=== PATIENT | male | born 1975 | race Caucasian/White ===

== ENCOUNTER 2017-01-29 13:40 | Emergency (ER) | payer MEDICAID, OTHER ==
[~2017-01-29] VITALS: Ht 188 cm; Wt 72.0 kg
[~2017-01-29 13:40] MED LIST: BUPR-75 PO; CLON2TAB3 PO; LEVE250T66 PO; VENL25TA PO
[2017-01-29 13:42] VITALS: Ht 188 cm; Wt 72.0 kg
[2017-01-29 14:12] LABS: URINE BLOOD (Dip) POC Negative (NEGATIVE)
[2017-01-29] MEDS ORDERED: LORAZEPAM 2 MG INJ IM ONE (14:30)
[2017-01-29] MEDS ORDERED: DIPHENHYDRAMINE 50 MG INJ IM ONE (14:30)
[2017-01-29] MEDS ORDERED: OLANZAPINE 10 MG VIAL IM ONE (14:30)
[2017-01-29 14:58] LABS: BARBITURATES Negative (NEGATIVE); BENZODIAZEPINES Negative (NEGATIVE); CANNABINOIDS Negative (NEGATIVE); COCAINE Negative (NEGATIVE); OPIATES Negative (NEGATIVE)
[2017-01-29 15:41] LABS: BASOPHILS % 0.3 % (0.0-2.0); EOSINOPHILS # 0.1 10^3/ul (0.0-0.5); EOSINOPHILS % 0.8 % (0.0-7.0); HEMATOCRIT 29.3 % (42.0-52.0); HEMOGLOBIN 8.9 g/dl (14.0-18.0); LYMPHOCYTES # 1.7 10^3/ul (0.8-2.9); LYMPHOCYTES % 27.9 % (15.0-51.0); MEAN CORPUSCULAR HEMOGLOBIN 21.3 pg (29.0-33.0); MEAN CORPUSCULAR HGB CONC 30.4 g/dl (32.0-37.0); MEAN CORPUSCULAR VOLUME 70.3 fl (82.0-101.0); MEAN PLATELET VOLUME 8.8 fl (7.4-10.4); MONOCYTE # 0.5 10^3/ul (0.3-0.9); MONOCYTES % 7.7 % (0.0-11.0); NEUTROPHILS % 63.1 % (39.0-77.0); PLATELET COUNT 375 10^3/UL (140-415); RED BLOOD COUNT 4.17 10^6/ul (4.70-6.10); RED CELL DISTRIBUTION WIDTH 17.2 % (11.5-14.5); WHITE BLOOD COUNT 6.2 10^3/ul (4.8-10.8)
[2017-01-29 16:04] LABS: ADD UMIC NO; UR ASCORBIC ACID 40 mg/dL (NEGATIVE); UR BILIRUBIN (Dip) NEGATIVE (NEGATIVE); UR BLOOD (Dip) NEGATIVE (NEGATIVE); UR CLARITY SLIGHTLY CLOUDY (CLEAR); UR COLOR YELLOW (YELLOW); UR GLUCOSE (Dip) NEGATIVE (NEGATIVE); UR KETONES (Dip) NEGATIVE (NEGATIVE); UR LEUKOCYTE ESTERASE (Dip) NEGATIVE Leu/ul (NEGATIVE); UR MUCUS FEW /HPF (NONE SEEN); UR NITRITE (Dip) NEGATIVE (NEGATIVE); UR RBC 1 /HPF (0-5); UR SPECIFIC GRAVITY (Dip) 1.026 (1.003-1.030); UR TOTAL PROTEIN (Dip) NEGATIVE (NEGATIVE); UR UROBILINOGEN (Dip) NEGATIVE (NEGATIVE)
[2017-01-29 16:08] LABS: ALANINE AMINOTRANSFERASE 56 IU/L (13-69); ALBUMIN 4.3 g/dl (3.3-4.9); ALBUMIN/GLOBULIN RATIO 1.19; ALKALINE PHOSPHATASE 89 IU/L (42-121); ANION GAP 15 (8-16); ASPARTATE AMINO TRANSFERASE 42 IU/L (15-46); BILIRUBIN,INDIRECT 0.1 mg/dl (0-1.1); BILIRUBIN,TOTAL 0.1 mg/dl (0.2-1.3); BLOOD UREA NITROGEN 13 mg/dl (7-20); CALCIUM 9.2 mg/dl (8.4-10.2); CARBON DIOXIDE 27 mmol/L (21-31); CHLORIDE 100 mmol/L (97-110); CREATININE 0.69 mg/dl (0.61-1.24); GLUCOSE 82 mg/dl (70-220); POTASSIUM 3.6 mmol/L (3.5-5.1); SODIUM 138 mmol/L (135-144); TOTAL PROTEIN 7.9 g/dl (6.1-8.1)
[2017-01-29 16:11] LABS: ACETAMINOPHEN < 10.0 ug/ml (10.0-30.0); ETHANOL < 10.0 mg/dl; SALICYLATE < 1.0 mg/dl (5.0-30.0)
--- NOTE | 2017-01-29 17:20 | PSY ---
Date/Time of Note Date/Time of Note DATE: 01/29/17 TIME: 17:16 Psychiatric Subjective Eval Consent Pt consented to telemedicine: Yes Subjective Evaluation Patient location: emergency Chief Complaint: pt bib self with c/o being suicidal History of present illness 41 yo male with hx schizophrenia, amph use disorder and hx self mutilation ( biting skin off her hands) , discharged from inpt psych 2 days ago, used meth, comes to ED c/o SI. In ED bit skin off her hand, had to be restrained. Pt states he is depressed, sucidal w/o a plan, wants to kill himself. No HI, no VH. Paranoid, irritable. Hx seizure do , on keppra. Past psychiatric history multiple inpt Hospitalization: Suicidal Attempt(s) Family History denies Medical history Problems Medical Problems: (1) Depression with suicidal ideation Status: Acute Allergies: Coded Allergies: quetiapine fumarate (Verified Allergy, Mild, DIZZY, 07/30/12) divalproex sodium (Verified Allergy, ABD PAIN, 07/30/12) Substance Abuse Substance abuse history: Yes Prior substance abuse treatmen: Yes Social History Marital status: single Level of education: spec ed DPA/Conservatorship: No Occupation/Detention: homeless, on ssi Psychiatric Objective Eval Mental Status Examination: Appearance: Disheveled Eye Contact: Good Psychomotor Activity: Normal Behavior: Guarded Speech: Monotone AFFECT: Flat Mood: Irritable Though Process: Circumstantial Thought Content: Hallucinations Suicidal: Yes Homicidal: No Orientation: x3 Cognition: Alert Insight: Impared Judgement: Impared Laboratory Results Laboratory Tests Test 01/29/17 14:15 01/29/17 14:17 01/29/17 15:20 Urine Color YELLOW Urine Clarity SLIGHTLY CLOUDY Urine pH 5.0 Urine Specific [place] 1.026 Urine Ketones NEGATIVEmg/dL Urine Nitrite NEGATIVEmg/dL Urine Bilirubin NEGATIVEmg/dL Urine Urobilinogen NEGATIVEmg/dL Urine Leukocyte Esterase NEGATIVELeu/ul Urine Microscopic RBC 1/HPF Urine Microscopic WBC 1/HPF Urine Mucus FEW/HPF Urine Hemoglobin NEGATIVEmg/dL Urine Glucose NEGATIVEmg/dL Urine Total Protein NEGATIVEmg/dl Urine Opiates Screen Negative Urine Barbiturates Negative Urine Amphetamines Screen POSITIVE Urine Benzodiazepines Screen Negative Urine Cocaine Screen Negative Urine Cannabinoids Negative Bedside Urine pH (LAB) 5.5 Bedside Urine Protein (LAB) Trace Bedside Urine Glucose (UA) Negative Bedside Urine Ketones (LAB) Negative Bedside Urine Blood Negative Bedside Urine Nitrite (LAB) Negative Bedside Urine Leukocyte Esterase (L Negative White Blood Count 6.210^3/ul Red Blood Count 4.1710^6/ul Hemoglobin 8.9g/dl Hematocrit 29.3% Mean Corpuscular Volume 70.3fl Mean Corpuscular Hemoglobin 21.3pg Mean Corpuscular Hemoglobin Concent 30.4g/dl Red Cell Distribution Width 17.2% Platelet Count 78709^3/UL Mean Platelet Volume 8.8fl Neutrophils % 63.1% Lymphocytes % 27.9% Monocytes % 7.7% Eosinophils % 0.8% Basophils % 0.3% Nucleated Red Blood Cells % 0.0/100WBC Neutrophils # (Manual) 3.910^3/ul Lymphocytes # 1.710^3/ul Monocytes # 0.510^3/ul Eosinophils # 0.110^3/ul Basophils # 0.010^3/ul Nucleated Red Blood Cells # 0.010^3/ul Sodium Level 138mmol/L Potassium Level 3.6mmol/L Chloride Level 100mmol/L Carbon Dioxide Level 27mmol/L Anion Gap 15 Blood Urea Nitrogen 13mg/dl Creatinine 0.69mg/dl Glucose Level 82mg/dl Calcium Level 9.2mg/dl Total Bilirubin 0.1mg/dl Direct Bilirubin 0.00mg/dl Indirect Bilirubin 0.1mg/dl Aspartate Amino Transf (AST/SGOT) 42IU/L Alanine Aminotransferase (ALT/SGPT) 56IU/L Alkaline Phosphatase 89IU/L Total Protein 7.9g/dl Albumin 4.3g/dl Globulin 3.60g/dl Albumin/Globulin Ratio 1.19 Salicylates Level < 1.0mg/dl Acetaminophen Level < 10.0ug/ml Ethyl Alcohol Level < 10.0mg/dl Assessment and Plan Assessment/Diagnosis [place] I: SCHIZOAFFECTIVE D/O [place] II: DEFERED [place] III: SEIZURE D/O [place] IV: SEVERE [place] V: GAF 15 Recommendation/Plan Medication Management ZYPREXA 10 MG PO BID; KLONOPIN 1 MG PO BID Follow-up/Disposition 5150 FOR DTS; 1:1 SITTER; TRANSFER TO IN PSYCH. 5150 Recommendation: Place ZAYRA Merritt MD Jan 29, 2017 17:20
--- NOTE | 2017-01-29 17:58 | ERA ---
ER Documentation Chief Complaint Date/Time DATE: 01/29/17 TIME: 17:57 Chief Complaint pt bib self with c/o being suicidal HPI This 41-year-old male presents to the emergency room for evaluation of suicidal ideation. Patient states he is hearing voices are telling him to kill himself. This patient does have a history of biting his skin to the point of needing sutures and medical intervention. He denies any homicidal ideation at this time ROS All systems reviewed and are negative except as per history of present illness. Medications Home Meds Reported Medications Clonazepam* (Clonazepam*) 2 Mg Tablet, 2 MG PO BID, TAB 01/22/14 Levetiracetam* (Keppra*) 250 Mg Tab, 250 MG PO BID, TAB 01/22/14 Bupropion Hcl* (Wellbutrin XL*) 150 Mg Tab.sr.24h, 300 MG PO DAILY, TAB.SA 01/22/14 Venlafaxine Hcl* (Effexor*) 25 Mg Tablet, 50 MG PO BID, TAB 01/22/14 Allergies Allergies: Coded Allergies: quetiapine fumarate (Verified Allergy, Mild, DIZZY, 07/30/12) divalproex sodium (Verified Allergy, ABD PAIN, 07/30/12) PMhx/Soc History of Surgery: No Anesthesia Reaction: No Hx Neurological Disorder: Yes (SEIZURE) Hx Respiratory Disorders: No Hx Cardiac Disorders: No Hx Psychiatric Problems: Yes (DEPRESSION, ANXIETY) Hx Miscellaneous Medical Probl: No Hx Alcohol Use: No (DENIES) Hx Substance Use: Yes Smoking Status: Unknown if ever smoked Physical Exam Vitals Vital Signs Date Time Temp Pulse Resp B/P Pulse Ox O2 Delivery O2 Flow Rate FiO2 01/29/17 14:13 76 18 115/75 Room Air 01/29/17 13:42 98.3 84 16 101/62 98 Physical Exam INITIAL VITAL SIGNS: Reviewed by me GENERAL: The patient is well developed and appropriate for usual state of health in no apparent distress HEENT: Pupils equal, round, and reactive to light. EOMI. There is no scleral icterus. NECK: C-spine is soft and supple, there is no meningismus. There is no cervical lymphadenopathy. LUNGS: Clear to auscultation bilaterally. There are no rales, wheezes or rhonchi. HEART: Regular rate and rhythm, no murmurs, clicks, rubs or gallops. ABDOMEN: Soft, non-tender, non-distended. There are bowel sounds in all four quadrants. No rebound or guarding. EXTREMITIES: There is no peripheral cyanosis or edema. No focal swelling or erythema. NEUROLOGICAL: The patient moves all four extremities with 5/5 strength. Cranial nerves II - XII are intact. Normal gait. Alert and oriented SKIN: Scarring of the left and right ventral aspects of his forearm, there is no apparent rash or petechiae. HEME/LYMPHATIC: There is no evidence of excessive bruising or lymphedema. PSYCHIATRIC: The patient does not appear anxious or depressed. Result Diagram: 01/29/17 1520 01/29/17 1520 Results 24 hrs Laboratory Tests Test 01/29/17 14:15 01/29/17 14:17 01/29/17 15:20 Urine Color YELLOW Urine Clarity SLIGHTLY CLOUDY Urine pH 5.0 Urine Specific [place] 1.026 Urine Ketones NEGATIVEmg/dL Urine Nitrite NEGATIVEmg/dL Urine Bilirubin NEGATIVEmg/dL Urine Urobilinogen NEGATIVEmg/dL Urine Leukocyte Esterase NEGATIVELeu/ul Urine Microscopic RBC 1/HPF Urine Microscopic WBC 1/HPF Urine Mucus FEW/HPF Urine Hemoglobin NEGATIVEmg/dL Urine Glucose NEGATIVEmg/dL Urine Total Protein NEGATIVEmg/dl Urine Opiates Screen Negative Urine Barbiturates Negative Urine Amphetamines Screen POSITIVE Urine Benzodiazepines Screen Negative Urine Cocaine Screen Negative Urine Cannabinoids Negative Bedside Urine pH (LAB) 5.5 Bedside Urine Protein (LAB) Trace Bedside Urine Glucose (UA) Negative Bedside Urine Ketones (LAB) Negative Bedside Urine Blood Negative Bedside Urine Nitrite (LAB) Negative Bedside Urine Leukocyte Esterase (L Negative White Blood Count 6.210^3/ul Red Blood Count 4.1710^6/ul Hemoglobin 8.9g/dl Hematocrit 29.3% Mean Corpuscular Volume 70.3fl Mean Corpuscular Hemoglobin 21.3pg Mean Corpuscular Hemoglobin Concent 30.4g/dl Red Cell Distribution Width 17.2% Platelet Count 65541^3/UL Mean Platelet Volume 8.8fl Neutrophils % 63.1% Lymphocytes % 27.9% Monocytes % 7.7% Eosinophils % 0.8% Basophils % 0.3% Nucleated Red Blood Cells % 0.0/100WBC Neutrophils # (Manual) 3.910^3/ul Lymphocytes # 1.710^3/ul Monocytes # 0.510^3/ul Eosinophils # 0.110^3/ul Basophils # 0.010^3/ul Nucleated Red Blood Cells # 0.010^3/ul Sodium Level 138mmol/L Potassium Level 3.6mmol/L Chloride Level 100mmol/L Carbon Dioxide Level 27mmol/L Anion Gap 15 Blood Urea Nitrogen 13mg/dl Creatinine 0.69mg/dl Glucose Level 82mg/dl Calcium Level 9.2mg/dl Total Bilirubin 0.1mg/dl Direct Bilirubin 0.00mg/dl Indirect Bilirubin 0.1mg/dl Aspartate Amino Transf (AST/SGOT) 42IU/L Alanine Aminotransferase (ALT/SGPT) 56IU/L Alkaline Phosphatase 89IU/L Total Protein 7.9g/dl Albumin 4.3g/dl Globulin 3.60g/dl Albumin/Globulin Ratio 1.19 Salicylates Level < 1.0mg/dl Acetaminophen Level < 10.0ug/ml Ethyl Alcohol Level < 10.0mg/dl Current Medications Medications (Trade) Dose Ordered Sig/Denisse Route PRN Reason Start Time Stop Time Status Last Admin Dose Admin Diphenhydramine HCl (Benadryl) 50 mg ONCE ONCE IM 01/29/17 14:30 01/29/17 14:31 DC 01/29/17 14:39 Lorazepam (Ativan) 4 mg ONCE ONCE IM 01/29/17 14:30 01/29/17 14:31 DC 01/29/17 14:38 Olanzapine (Zyprexa) 10 mg ONCE ONCE IM 01/29/17 14:30 01/29/17 14:31 DC 01/29/17 14:44 Procedures/MDM This 41-year-old male presents to the ER for evaluation of suicidal ideation. The patient is well-known to the emergency room and has had previous history of biting himself to the point of tearing his skin off his arm. The patient was given Zyprexa, Ativan, and Benadryl in the emergency room. He was restrained. The patient was medically cleared and has been seen by our psychiatric vessel ordinary seaman who recommends a hold at this time. The patient will be placed in for admission at the first available facility willing to accept him. Patient presents with symptomatology consistent with the decompensation of previously diagnosed psychiatric disease. Based on history, physical exam and appropriate lab tests, I appreciate no evidence of significant life-threatening injury or illness that includes a psychiatric hospitalization. Patient is thus " medically clear" for psychiatric admission. In regards to the psychiatric complaints, this patient has clear evidence of high risk psychiatric symptoms with significant risk for decompensation, thus requiring admission to the hospital for stabilization. Departure Diagnosis: Primary Impression: Suicidal ideation Condition: Stable MAYUR THOMAS DO Jan 29, 2017 17:58
[2017-01-30] MEDS ORDERED: HALOPERIDOL 5 MG INJ ONE (02:54)
[2017-01-30] MEDS ORDERED: DIPHENHYDRAMINE 50 MG INJ ONE (02:57)
[2017-01-30] MEDS ORDERED: HALOPERIDOL 5 MG INJ IM ONE (03:30)
[2017-01-30] MEDS ORDERED: DIPHENHYDRAMINE 50 MG INJ IM ONE (03:30)
[2017-01-30 10:50] VITALS: BP 112/64; PULSE 68; RESP 20; TEMP 98.2
--- NOTE | 2017-01-30 12:42 | PSY ---
Date/Time of Note Date/Time of Note DATE: 01/30/17 TIME: 11:24 Psychiatric Subjective Eval Consent Pt consented to telemedicine: Yes Subjective Evaluation Patient location: emergency Chief Complaint: pt bib self with c/o being suicidal History of present illness This is a 41 year old single male who presented to the ED with complaints of suicidal ideation. He was complaining of auditory hallucinations telling him to kill himself. He was discharged from [facility] 2 days ago. Shortly after discharge he smoked some methamphetamine which during withdrawal he developed symptoms of suicidal ideation and auditory hallucinations. He was seen and evaluated by Dr. Brooks who recommended Olanzapine 10mg po bid and Clonazepam 1mg po bid. Over the past several hours, he denies suicidal ideation or feeling of harming himself and wished to be discharged, hence the reason for this consult. During the interview, the patient eye contact was fair. He was cooperative and did not appear to be in significant distress. He denied suicidal or homicidal ideation intent or plan. He denied hallucinations or delusions. He had a plan to see his psychiatrist. He has prescriptions for his medications but was unable to obtain them as he lost his ID. He has since completed paperwork to obtain a new one. Past psychiatric history Past psychiatric history: He has been prescribed Wellbutrin for symptoms of depression, Clonazepam 1mg po bid for symptoms of anxiety, Abilify 5mg po bid for mood stabilization and hallucinations, Keppra for hsi seizure disorder. He is aware of the risks of Wellbutrin and seizure disorder, and has been taking Wellbutrin for 8 years with good clinical benefit. He was recently hospitalized at [facility] and was discharged 2 days ago. Hospitalization: Suicidal Attempt(s) Family History His mother has a history of bipolar disorder and anxiety. Medical history Problems Medical Problems: (1) Depression with suicidal ideation Status: Acute (2) Suicidal ideation Status: Acute Allergies: Coded Allergies: quetiapine fumarate (Verified Allergy, Mild, DIZZY, 07/30/12) divalproex sodium (Verified Allergy, ABD PAIN, 07/30/12) Social History Marital status: single Level of education: spec ed DPA/Conservatorship: No Occupation/Senior Living: homeless, on ssi Psychiatric Objective Eval Review of Systems: Review of Systems: Not Applicable Constitutional: Normal Eyes: Normal ENT: Normal Neck: Normal Respiratory: Normal Chest/Breast: Normal Cardiovascular: Normal GI: Normal Genitourinary: Normal Skin: Normal Lymphatic: Normal Musculoskeletal: Normal Neurological: Normal Physical Examination: Physical Examination: Not Applicable Sleep: Adequate Appetite: Adequate Energy: Adequate Mental Status Examination: Appearance: Poor Hygiene Eye Contact: Fair Psychomotor Activity: Normal Behavior: Cooperative Speech: Clear AFFECT: Appropriate Mood: Appropriate/Full Though Process: Linear Thought Content: Normal Suicidal: No Homicidal: No On 72 hour hold: Yes Orientation: x4 Cognition: Alert Insight: Intact Judgement: Intact Attention Span: Intact Laboratory Results Laboratory Tests Test 01/29/17 14:15 01/29/17 14:17 01/29/17 15:20 Urine Color YELLOW Urine Clarity SLIGHTLY CLOUDY Urine pH 5.0 Urine Specific [place] 1.026 Urine Ketones NEGATIVEmg/dL Urine Nitrite NEGATIVEmg/dL Urine Bilirubin NEGATIVEmg/dL Urine Urobilinogen NEGATIVEmg/dL Urine Leukocyte Esterase NEGATIVELeu/ul Urine Microscopic RBC 1/HPF Urine Microscopic WBC 1/HPF Urine Mucus FEW/HPF Urine Hemoglobin NEGATIVEmg/dL Urine Glucose NEGATIVEmg/dL Urine Total Protein NEGATIVEmg/dl Urine Opiates Screen Negative Urine Barbiturates Negative Urine Amphetamines Screen POSITIVE Urine Benzodiazepines Screen Negative Urine Cocaine Screen Negative Urine Cannabinoids Negative Bedside Urine pH (LAB) 5.5 Bedside Urine Protein (LAB) Trace Bedside Urine Glucose (UA) Negative Bedside Urine Ketones (LAB) Negative Bedside Urine Blood Negative Bedside Urine Nitrite (LAB) Negative Bedside Urine Leukocyte Esterase (L Negative White Blood Count 6.210^3/ul Red Blood Count 4.1710^6/ul Hemoglobin 8.9g/dl Hematocrit 29.3% Mean Corpuscular Volume 70.3fl Mean Corpuscular Hemoglobin 21.3pg Mean Corpuscular Hemoglobin Concent 30.4g/dl Red Cell Distribution Width 17.2% Platelet Count 74254^3/UL Mean Platelet Volume 8.8fl Neutrophils % 63.1% Lymphocytes % 27.9% Monocytes % 7.7% Eosinophils % 0.8% Basophils % 0.3% Nucleated Red Blood Cells % 0.0/100WBC Neutrophils # (Manual) 3.910^3/ul Lymphocytes # 1.710^3/ul Monocytes # 0.510^3/ul Eosinophils # 0.110^3/ul Basophils # 0.010^3/ul Nucleated Red Blood Cells # 0.010^3/ul Sodium Level 138mmol/L Potassium Level 3.6mmol/L Chloride Level 100mmol/L Carbon Dioxide Level 27mmol/L Anion Gap 15 Blood Urea Nitrogen 13mg/dl Creatinine 0.69mg/dl Glucose Level 82mg/dl Calcium Level 9.2mg/dl Total Bilirubin 0.1mg/dl Direct Bilirubin 0.00mg/dl Indirect Bilirubin 0.1mg/dl Aspartate Amino Transf (AST/SGOT) 42IU/L Alanine Aminotransferase (ALT/SGPT) 56IU/L Alkaline Phosphatase 89IU/L Total Protein 7.9g/dl Albumin 4.3g/dl Globulin 3.60g/dl Albumin/Globulin Ratio 1.19 Salicylates Level < 1.0mg/dl Acetaminophen Level < 10.0ug/ml Ethyl Alcohol Level < 10.0mg/dl Assessment and Plan Assessment/Diagnosis [place] I: F25.1 Schizoaffective disorder F15.20 Methamphetamine dependence [place] II: No psychiatric diagnosis [place] III: excoriation of skin [place] IV: Homeless, [place] V: 50 Recommendation/Plan Medication Management Continue current medications. Psychotherapy Have social service assist with him having an ID so that he can obtain his medications. Follow-up/Disposition the patient can be discharged as he no longer meets 5150 criteria. He denies suicidal or homicidal ideation, intent or plan. 5150 Recommendation: JOHN Blue MD Jan 30, 2017 12:36
--- NOTE | 2017-01-30 14:07 | EN ---
Date/Time of Note Date/Time of Note DATE: 01/30/17 TIME: 14:06 ER Progress Note This patient states he is not suicidal at this time. He was evaluated by tele- psych psychiatrist who states this patient can be discharged. Social work has spoken to this patient about his ID and has facilitated him being able to obtain medications. The patient is comfortable with discharge and will be discharged home at this time. MAYUR THOMAS DO Jan 30, 2017 14:06
== END 2017-01-30 14:23 | disposition home or self-care (01) ==
LOC: E/R 13:40
DX: R45.851 Suicidal ideations (principal)
CPT/HCPCS: 36415; 80053; 80306; 80307; 81001; 85025; 96372; J1200; J1630; J2060; Z7502; 81003

== ENCOUNTER 2017-02-24 21:31 | Emergency (ER) | payer SELFPAY | END 2017-02-24 21:57 | disposition left against medical advice (07) | LOC: E/R 21:31 | DX: Z53.21 Procedure and treatment not carried out due to patient leaving prior to being seen by health care provider (principal) ==